=== PATIENT | male | born 1935 | race Caucasian/White ===

== ENCOUNTER 2017-09-10 08:16 | Emergency (ER) | payer OTHER ==
[~2017-09-10] VITALS: Ht 170.2 cm; Wt 91.8 kg
[~2017-09-10 08:16] MED LIST: Antivert PO; Coumadin Protocol PO; DURAGESIC25 MCG TD; Dilaudid PO; Feosol PO; NEXIUM40 MG PO; Neurontin PO; PRAVACHOL40 MG PO; Pravachol PO; Protonix PO; Rocephin IV; SPIRIVA1 INHALATI IH; Vicodin,Norco 5/325 PO; ZANTAC150 MG PO; Zocor PO; celeBREX PO
[2017-09-10] MEDS ORDERED: PREDNISONE50 MG PO (12:21)
[2017-09-10 12:59] VITALS: BP 137/70
== END 2017-09-10 13:01 | disposition home or self-care (01) ==
LOC: EME 08:16
DX: M54.16 Radiculopathy, lumbar region (principal); J44.9 Chronic obstructive pulmonary disease, unspecified; F17.210 Nicotine dependence, cigarettes, uncomplicated; K21.9 Gastro-esophageal reflux disease without esophagitis; F41.9 Anxiety disorder, unspecified; Z98.1 Arthrodesis status; Z86.73 Personal history of transient ischemic attack (TIA), and cerebral infarction without residual deficits; Z96.643 Presence of artificial hip joint, bilateral; Z96.652 Presence of left artificial knee joint
CPT/HCPCS: 72100; 99281; 99283

== ENCOUNTER 2017-10-24 05:20 | Day surgery (SDC) | payer OTHER ==
[~2017-10-24] VITALS: Ht 167.6 cm; Wt 88.4 kg
[~2017-10-24 05:20] MED LIST changes: +CYMBALTA30 MG PO; +MORPHINE SULFAT15 MG PO; +OMEPRAZOLE40 M1 PO; +PREDNISONE50 MG PO
[2017-10-24 05:50] VITALS: BP 140/77
[2017-10-24 11:02] VITALS: BP 143/73
[2017-10-24 12:00] VITALS: BP 151/65
[2017-10-24 13:24] VITALS: BP 161/89
== END 2017-10-24 13:25 | disposition home or self-care (01) ==
LOC: SDC 05:20
PROC: 0SB20ZZ Excision of Lumbar Vertebral Disc, Open Approach (ICD-10-PCS; principal; 2017-10-24)
DX: M51.16 Intervertebral disc disorders with radiculopathy, lumbar region (principal); K21.9 Gastro-esophageal reflux disease without esophagitis; Z96.652 Presence of left artificial knee joint; Z96.643 Presence of artificial hip joint, bilateral
CPT/HCPCS: 72020; 76000; J0690; J1040; J2405; J2710; J3010